=== PATIENT | male | born 1940 | race Caucasian/White ===

== ENCOUNTER 2017-05-19 09:47 | Emergency (ER) | payer MEDICARE ==
[~2017-05-19] VITALS: Ht 165.1 cm; Wt 59.6 kg
[2017-05-19 11:15] LABS: BASOPHILS # (AUTO) 0.03 x10^3/uL (0-0.1); BASOPHILS % (AUTO) 0 % (0-1); EOSINOPHILS # (AUTO) 0.33 x10^3/uL (0-0.4); EOSINOPHILS % (AUTO) 4 % (1-7); LYMPHOCYTES # (AUTO) 1.44 x10^3/uL (1-3.4); LYMPHOCYTES % (AUTO) 18 % (22-44); MD NO; MEAN CORPUSCULAR HEMOGLOBIN 31.4 pg (27.5-34.5); MEAN CORPUSCULAR HGB CONC 33.5 g/dL (33.2-36.2); MEAN CORPUSCULAR VOLUME 93.6 fL (81-97); MEAN PLATELET VOLUME 8.4 fL (7.4-10.4); MONOCYTES # (AUTO) 0.74 x10^3/uL (0.2-0.8); MONOCYTES % (AUTO) 9 % (2-9); NEUTROPHILS # (AUTO) 5.29 x10^3/uL (1.8-6.8); NEUTROPHILS % (AUTO) 68 % (42-75); PLATELET COUNT 290 x10^3/uL (130-400); RED BLOOD COUNT 4.68 x10^6/uL (4.38-5.82); RED CELL DISTRIBUTION WIDTH 14.1 % (9.4-14.8)
[2017-05-19 11:21] LABS: INTERNATIONAL NORMALIZED RATIO 0.99 (0.93-1.1); PROTHROMBIN TIME 10.3 Seconds (9.6-11.5)
[2017-05-19 11:25] LABS: ALBUMIN 3.7 g/dL (3.4-5.0); CALCIUM 8.8 mg/dL (8.5-10.1); CHLORIDE 108 mmol/L (98-107)
[2017-05-19 11:28] LABS: ANION GAP 6 mmol/L (5-15); CREATININE 0.82 mg/dL (0.7-1.3)
[2017-05-19] MEDS ORDERED: NAPROXEN 500 MG TABLET PO ONE (12:30)
[2017-05-19 12:42] VITALS: BP 103/52
== END 2017-05-19 12:44 | disposition home or self-care (01) ==
LOC: ED 11:14
DX: M47.892 Other spondylosis, cervical region (principal); R51 Headache; R29.6 Repeated falls; Z87.891 Personal history of nicotine dependence
CPT/HCPCS: 36415; 70450; 72125; 80048; 82040; 85025; 85610; 99285

== ENCOUNTER 2018-07-06 09:48 | Emergency (ER) | payer MEDICARE ==
[~2018-07-06] VITALS: Ht 162.6 cm; Wt 53.2 kg
[2018-07-06 09:51] VITALS: BP 94/63
[2018-07-06] MEDS ORDERED: ACETAMINOPHEN 500 MG TABLET ONE (10:21)
[2018-07-06 10:27] LABS: BASOPHILS # (AUTO) 0.02 x10^3/uL (0-0.1); BASOPHILS % (AUTO) 0 % (0-1); EOSINOPHILS # (AUTO) 0.36 x10^3/uL (0-0.4); EOSINOPHILS % (AUTO) 4 % (1-7); LYMPHOCYTES # (AUTO) 1.37 x10^3/uL (1-3.4); LYMPHOCYTES % (AUTO) 14 % (22-44); MD NO; MEAN CORPUSCULAR HEMOGLOBIN 29.7 pg (27.5-34.5); MEAN CORPUSCULAR HGB CONC 33.3 g/dL (33.2-36.2); MEAN CORPUSCULAR VOLUME 89.2 fL (81-97); MEAN PLATELET VOLUME 8.3 fL (7.4-10.4); MONOCYTES # (AUTO) 0.77 x10^3/uL (0.2-0.8); MONOCYTES % (AUTO) 8 % (2-9); NEUTROPHILS # (AUTO) 7.43 x10^3/uL (1.8-6.8); NEUTROPHILS % (AUTO) 75 % (42-75); PLATELET COUNT 409 x10^3/uL (130-400); RED BLOOD COUNT 4.06 x10^6/uL (4.38-5.82); RED CELL DISTRIBUTION WIDTH 15.3 % (9.4-14.8)
[2018-07-06] MEDS ORDERED: ACETAMINOPHEN 500 MG TABLET PO ONE (10:30)
[2018-07-06 10:37] LABS: ALBUMIN 3.1 g/dL (3.4-5.0); ANION GAP 3 mmol/L (5-15); CALCIUM 9.5 mg/dL (8.5-10.1); CHLORIDE 108 mmol/L (98-107); CREATININE 0.87 mg/dL (0.7-1.3)
--- NOTE | 2018-07-06 10:43 | NUR ---
PT BACK FROM CT. ASSUMED CARE. PT HERE FOR C/O INTERMITTENT POSTERIOR AND ANTERIOR [place] X SEVERAL MONTHS. PT ALSO WITH RIGHT SHOULDER PAIN FOR SAME PERIOD OF TIME. DENIES FALLING. DENIES LIGHTHEADNESS AND DIZZYNESS. MILD AMOUNT OF DISTRESS NOTED. BREATHING REGULAR AND UNLABORED. PT MEDICATED PER JUN. 5 RIGHTS VERIFIED PRIOR. 3 P'S ADDRESSED.
[2018-07-06] MEDS ORDERED: KETOROLAC 30 MG/1 ML IM ONE (11:30)
[2018-07-06] MEDS ORDERED: KETOROLAC 30 MG/1 ML ONE (11:44)
--- NOTE | 2018-07-06 11:51 | NUR ---
PT MEDICATED PER JUN. 5 RIGHTS VERIFIED PRIOR. 3 P'S ADDRESSED.
== END 2018-07-06 12:04 | disposition home or self-care (01) ==
LOC: ED 11:54
DX: G44.219 Episodic tension-type headache, not intractable (principal); M79.10 Myalgia, unspecified site; M19.90 Unspecified osteoarthritis, unspecified site; Z87.891 Personal history of nicotine dependence; Z90.89 Acquired absence of other organs
CPT/HCPCS: 36415; 70450; 80048; 82040; 85025; 96372; 99284; J1885